=== PATIENT | male | born 1940 | race Caucasian/White ===

== ENCOUNTER → 2016-11-20 | Outpatient (CLI) | payer OTHER ==
[~2016-11-20] MED LIST: CIPRO500 MG PO; FLOMAX0.4 MG PO; MAG-OXIDE400 MG PO; TRICOR145 MG PO; VICODIN PO; ZOCOR20 MG PO
== END | disposition home or self-care (01) ==
LOC: CDC 11:44
DX: Z01.810 Encounter for preprocedural cardiovascular examination (principal); M43.10 Spondylolisthesis, site unspecified
CPT/HCPCS: 93000

== ENCOUNTER 2017-01-07 05:31 | Day surgery (SDC) | payer OTHER ==
[~2017-01-07] VITALS: Ht 182.9 cm; Wt 72.6 kg
[~2017-01-07 05:31] MED LIST changes: +UROCIT-K15 MEQ PO
[2017-01-07 06:08] VITALS: BP 140/69
[2017-01-07 11:21] VITALS: BP 123/84
[2017-01-07 12:45] VITALS: BP 130/74
== END 2017-01-07 12:55 | disposition home or self-care (01) ==
LOC: SDC 05:31
PROC: 00QT0ZZ Repair Spinal Meninges, Open Approach (ICD-10-PCS; principal; 2017-01-07)
PROC: 00UT0JZ Supplement Spinal Meninges with Synthetic Substitute, Open Approach (ICD-10-PCS; 2017-01-07)
DX: G96.0 Cerebrospinal fluid leak (principal); E78.00 Pure hypercholesterolemia, unspecified; Z87.891 Personal history of nicotine dependence
CPT/HCPCS: J0330; J0690; J1100; J1170; J2405; J2765; J3010; Q0175; S0020